=== PATIENT | female | born 1980 | race Caucasian/White ===

== ENCOUNTER 2017-06-30 13:22 | Inpatient (IN) ==
[2017-07-11] MEDS ORDERED: ZOFRAN IV PRN (21:37)
[2017-07-11] MEDS ORDERED: PEPCID IV PRN (21:37)
[2017-07-11] MEDS ORDERED: BRETHINE SUBQ PRN (21:37)
[2017-07-11] MEDS ORDERED: TYLENOL PO PRN (21:37)
[2017-07-11] MEDS ORDERED: AMBIEN PO PRN (21:37)
[2017-07-11] MEDS ORDERED: PEPCID PO PRN (21:37)
[2017-07-11] MEDS ORDERED: KEFZOL 1 GM/D5W 1 GM/50 ML IVPB IV PRN (21:37)
[2017-07-11] MEDS ORDERED: LR 1,000 ML IV ONE (21:37)
[2017-07-11] MEDS ORDERED: STADOL IV PRN ×3 (21:37)
[2017-07-11] MEDS ORDERED: AMPICILLIN 2 GM/NS 2 GM/100 ML IVPB IV ONE (22:00)
[2017-07-11] MEDS ORDERED: CYTOTEC PO ONE (23:00)
[2017-07-11 23:36] LABS: URINE SOURCE VOIDED
[2017-07-11 23:36] LABS: MANUAL DIFF NEEDED? NO
[2017-07-11 23:40] LABS: BASO% 0.2 % (0.0-0.8); EOS# 0.07 X1000 (0.0-0.7); EOS% 0.6 % (0.0-10.0); HEMATOCRIT 44.7 % (37.0-47.0); HEMOGLOBIN 14.6 g/dL (12.0-16.0); IMM GRAN# 0.06 X1000 (0.0-0.04); IMM GRAN% 0.5 % (0.0-0.5); LYMPH# 1.94 X1000 (1.2-3.4); LYMPH% 16.3 % (20.5-51.1); MCH 29.9 PG (27-31); MCHC 32.7 g/dL (33-37); MCV 91.6 FL (81-99); MONO# 0.96 X1000 (0.11-0.59); MONO% 8.1 % (1.7-9.3); MPV 10.4 FL (7.4-10.4); NEUT% 74.3 % (42.2-75.2); PLT 233 X1000 (130-400); RBC 4.88 XMIL (4.2-5.4)
[2017-07-11 23:54] LABS: UR AMPHETAMINES QUAL NONE DETECTED (NONE DETECT); UR BARBITUATES QUAL NONE DETECTED (NONE DETECT); UR BENZODIAZEPIN QUAL NONE DETECTED (NONE DETECT); UR CANNABINOIDS QUAL NONE DETECTED (NONE DETECT); UR COCAINE QUAL NONE DETECTED (NONE DETECT); UR MDMA QUAL NONE DETECTED (NONE DETECT); UR METHADONE QUAL NONE DETECTED (NONE DETECT); UR METHAMPHETAMINE QUAL NONE DETECTED (NONE DETECT); UR OPIATES QUAL NONE DETECTED (NONE DETECT); UR OXYCODONE QUAL NONE DETECTED (NONE DETECT); UR PCP QUAL NONE DETECTED (NONE DETECT); UR TCA QUAL NONE DETECTED (NONE DETECT)
[2017-07-12 00:07] LABS: BILIRUBIN URINE NEGATIVE (NEGATIVE); BLOOD URINE NEGATIVE (NEGATIVE); CLARITY CLEAR (CLEAR); COLOR YELLOW; GLUCOSE URINE NEGATIVE (NEGATIVE); LEUKOCYTES URINE TRACE (NEGATIVE); NITRITE URINE NEGATIVE (NEGATIVE); PROTEIN URINE NEGATIVE (NEGATIVE); SP GRAVITY URINE 1.015; UROBILINOGEN URINE NORMAL
[2017-07-12] MEDS: AMPICILLIN 1 GM/NS 1 GM/50 ML IVPB IV SCH ×3 (02:40→13:31)
[2017-07-12] MEDS ORDERED: CYTOTEC PO SCH (03:00)
[2017-07-12] MEDS ORDERED: PITOCIN 30 UNITS/LR 30 UNITS/500 ML IV.SOLN IV SCH (07:00)
[2017-07-12] MEDS ORDERED: XYLOCAINE-MPF 1% INJ ONE ×2 (07:13→07:30)
[2017-07-12] MEDS ORDERED: MINERAL OIL ONE (07:14)
[2017-07-12] MEDS ORDERED: FENTANYL-BUPIV-NS 2 MCG-0.1% 200 ML EPIDURAL PRN (07:18)
[2017-07-12] MEDS ORDERED: LR 1,000 ML IV SCH (08:22)
[2017-07-12] MEDS ORDERED: BENADRYL IV PRN (10:52)
[2017-07-12] MEDS ORDERED: PITOCIN 30 UNITS/LR 30 UNITS/500 ML IV.SOLN IV ONE (10:52)
[2017-07-12] MEDS ORDERED: AMBIEN PO PRN (10:52)
[2017-07-12] MEDS ORDERED: NORCO-5 PO PRN (10:52)
[2017-07-12] MEDS ORDERED: NORCO-10 PO PRN (10:52)
[2017-07-12] MEDS ORDERED: XYLOCAINE-MPF 1% INJ PRN (10:52)
[2017-07-12] MEDS ORDERED: HYDROXYZINE IM PRN (10:52)
[2017-07-12] MEDS ORDERED: CYTOTEC PO PRN (10:52)
[2017-07-12] MEDS ORDERED: PITOCIN 20 UNITS/LR 20 UNITS/1,000 ML IV.SOLN IV SCH (10:52)
[2017-07-12] MEDS ORDERED: BOOSTRIX VACCINE IM ONE (10:52)
[2017-07-12] MEDS ORDERED: BENADRYL PO PRN (10:52)
[2017-07-12] MEDS ORDERED: HYDROXYZINE PO PRN (10:52)
[2017-07-12] MEDS ORDERED: MINERAL OIL PO PRN (10:52)
[2017-07-12] MEDS ORDERED: M-M-R II VACCINE SUBQ ONE (10:52)
[2017-07-12] MEDS ORDERED: PITOCIN IM PRN (10:52)
[2017-07-12] MEDS ORDERED: PERI MEDS (DERMOPLAST/NUPERCAINAL/TUCKS) MISC PRN (10:52)
[2017-07-12] MEDS: MOTRIN PO PRN ×2 (13:40→21:51)
[2017-07-12] MEDS: PERICOLACE PO SCH (20:57)
[2017-07-13 06:31] LABS: HEMOGLOBIN 11.3 g/dL (12.0-16.0); MCH 29.9 PG (27-31); MCHC 32.3 g/dL (33-37); MCV 92.6 FL (81-99); MPV 10.6 FL (7.4-10.4); RBC 3.78 XMIL (4.2-5.4)
[2017-07-13] MEDS: MOTRIN PO PRN ×2 (07:40→20:40)
[2017-07-13] MEDS: PERICOLACE PO SCH (20:41)
[2017-07-14] MEDS: MOTRIN PO PRN (07:06)
[2017-07-14 08:18] VITALS: BP 128/83
== END 2017-07-14 09:54 | disposition home or self-care (01) ==
LOC: P.LD 07-11 21:35 → P.WC 07-12 17:10
PROVIDERS: ADMIT Obstetrics & Gynecology; ATTEND Obstetrics & Gynecology